=== PATIENT | male | born 1940 | race Caucasian/White ===

== ENCOUNTER 2017-08-17 05:46 | Day surgery (SDC) | payer OTHER ==
[~2017-08-17] VITALS: Ht 182.9 cm; Wt 78.8 kg
[~2017-08-17 05:46] MED LIST: ASPI-621 PO; ATOR40TA78 PO; DOCU250C9 PO; GABA300C10 PO; METO25TA35 PO; OXYC10TA72 PO; OXYC5TAB3 PO; SENN8.6T64 PO; TAMS0.4C2 PO
[2017-08-17] MEDS ORDERED: LACTATED RINGERS 1,000 ML IV SCH (06:23)
[2017-08-17] MEDS ORDERED: methylPREDNISolone SOD SUCC 125 MG/2 ML ONE (06:42)
[2017-08-17] MEDS ORDERED: BUPIVACAINE/PF 0.5% ONE (06:42)
[2017-08-17] MEDS ORDERED: THROMBIN 5,000 UNIT VIAL TP ONE (06:43)
[2017-08-17] MEDS ORDERED: EPINEPHRINE 1 MG/ML, 1ML ONE (06:43)
[2017-08-17] MEDS ORDERED: FENTANYL PF 100 MCG/2ML ONE ×4 (06:43→09:24)
[2017-08-17] MEDS ORDERED: BACITRACIN 50,000 UNIT ONE (06:43)
[2017-08-17 06:45] VITALS: BP 138/80
[2017-08-17] MEDS ORDERED: KETAMINE 10 MG/ML, 20ML ONE (07:06)
[2017-08-17] MEDS ORDERED: MIDAZOLAM 1 MG/ML, 2ML ONE (07:07)
[2017-08-17] MEDS ORDERED: CEFAZOLIN 1,000 MG ONE ×2 (07:09→07:13)
[2017-08-17] MEDS ORDERED: PROPOFOL 10 MG/ML, 20ML ONE (07:09)
[2017-08-17] MEDS ORDERED: LIDOCAINE-MPF 2% ,5ML ONE (07:10)
[2017-08-17] MEDS ORDERED: SUCCINYLCHOLINE 20 MG/ML, 10ML ONE (07:11)
[2017-08-17] MEDS ORDERED: DEXAMETHASONE 4 MG/ML, 1ML ONE ×2 (07:12)
[2017-08-17] MEDS ORDERED: ONDANSETRON 2MG/ML, 2ML ONE (07:12)
[2017-08-17] MEDS ORDERED: ROCURONIUM 10 MG/ML ONE (07:29)
[2017-08-17] MEDS ORDERED: EPHEDRINE 50 MG/ML, 1ML ONE (07:54)
[2017-08-17] MEDS ORDERED: HYDROmorphone 1 MG/ML, 1ML IV PRN (08:30)
[2017-08-17] MEDS ORDERED: LABETALOL 5MG/ML, 20ML IV PRN (08:30)
[2017-08-17] MEDS ORDERED: ACETAMINOPHEN 325 MG TABLET PO PRN (08:30)
[2017-08-17] MEDS ORDERED: OXYcodone 5 MG/5 ML ORAL.SOL UDC PO PRN (08:30)
[2017-08-17] MEDS ORDERED: hydrALAzine 20 MG/ML, 1ML IV PRN (08:30)
[2017-08-17] MEDS ORDERED: DIAZEPAM 5 MG/ML, 2ML IVPush PRN (08:30)
[2017-08-17] MEDS ORDERED: PROMETHAZINE 25 MG/ML, 1ML IV PRN (08:30)
[2017-08-17] MEDS ORDERED: NEOSTIGMINE 1 MG/ML, 10ML ONE (08:31)
[2017-08-17] MEDS ORDERED: GLYCOPYRROLATE 0.4 MG/2 ML, 2ML ONE (08:31)
[2017-08-17] MEDS ORDERED: ACETAMINOPHEN 650 MG/20.3 ML UDC ONE (09:17)
[2017-08-17] MEDS: FENTANYL PF 100 MCG/2ML IV PRN ×3 (09:25→10:44)
== END 2017-08-17 13:45 | disposition home or self-care (01) ==
LOC: OUT 05:46
PROVIDERS: ATTEND Neurological Surgery
DX: M54.16 Radiculopathy, lumbar region (principal); E78.00 Pure hypercholesterolemia, unspecified; Z98.890 Other specified postprocedural states; Z79.82 Long term (current) use of aspirin
CPT/HCPCS: 63030; 72100; J0171; J0330; J0690; J1100; J2250; J2405; J2704; J2710; J2930; J3010; J3490; J7120